=== PATIENT | female | born 1940 | race Caucasian/White ===

== ENCOUNTER 2016-11-11 12:03 | Outpatient (CLI) | payer MEDICARE, OTHER ==
[2016-05-30 10:32] VITALS: BP 98/67
== END 2016-11-11 12:04 ==
LOC: CARD 12:03
PROVIDERS: ATTEND Internal Medicine Cardiovascular Disease
DX: I47.1 Supraventricular tachycardia (principal)
CPT/HCPCS: G0463

== ENCOUNTER 2017-03-19 17:57 | Emergency (ER) | payer MEDICARE, OTHER ==
--- NOTE | 2017-03-19 18:49 | ED Physician Documentation ---
Wrist Injury - HISTORIAN Historian: patient - HPI Chief Complaint: Fall Additional Information: fell on to cement, hit side of head, giving lump, and hurt medial left wrist. NO LOC, no memory loss, no vomiting Onset: just prior to arrival Where: home Severity: mild Duration: persistent since Context: fall Location of Injury: L wrist Further Comments: no - ROS CONST: no problems GI/: denies: nausea, vomiting NEURO: headache (hurts where she has a bump) CVS/RESP: none LNMP: denies: EYES/ENT: none MS/SKIN/LYMPH: none - PAST HX Past History: Rt handed, diabetes Type 2 Allergies/Adverse Reactions: Allergies Allergy/AdvReac Type Severity Reaction Status Date / Time No Known Allergies Allergy Verified 03/19/17 18:12 Home Medications: Ambulatory Orders Medication Instructions Recorded Levothyroxine Sodium [Levothroid] 150 mcg PO DAILY 10/14/12 Lisinopril [Lisinopril] 10 mg PO BID 10/14/12 Lovastatin [Lovastatin] 5 mg PO DAILY 10/14/12 Metformin HCl [GLUCOPHAGE] 500 mg PO DAILY 10/14/12 Sitagliptin Phosphate [Januvia] 100 mg PO D 09/12/13 Metoprolol Tartrate [Lopressor] 25 mg PO BID 03/19/17 - SOCIAL HX Smoking History: non-smoker Alcohol Use: none Drug Use: none - FAMILY HX Family History: none - VITAL SIGNS Vital Signs: Vital Signs Temp Pulse Resp BP Pulse Ox 98/67 05/30/16 10:30 - REVIEWED ASSESSMENTS Nursing Assessment Reviewed: Yes Vitals Reviewed: Yes Wrist Physical Exam - Physical Exam General Appearance: no acute distress, alert, anxious Hand: tenderness Wrist: soft tissue tenderness (medial left wrist, no deformity.). No: asymmetry Neuro: sensation nml, motor nml Vascular: no vascular compromise Tendon: tendon function nml Forearm/Elbow/Arm: uninjured above wrist Skin: warm/dry, normal color Head/ENT: other (2cm hematoma Left parietal scalp) Neck/Back: nml inspection Resp/CVS: no resp. distress Abdomen: non-tender ED Results Lab/Radiology - Radiology Radiology Impressions: radiology says distal radius fracture. we'll sp[lint - Orders Orders: ED Orders Category Date Time Status WRIST 3 VIEWS OR MORE [RAD] Stat Exams 03/19/17 Ordered Discharge Clincal Impression: Radius distal fracture Qualifiers: Encounter type: initial encounter Fracture type: closed Fracture morphology: other fracture Laterality: left Qualified Code(s): S52.592A - Other fractures of lower end of left radius, initial encounter for closed fracture Referrals: Elizabeth Headley FNP [Primary Care Provider] - 2 Days Home Medications: Ambulatory Orders Levothyroxine Sodium [Levothroid] 150 mcg PO DAILY 10/14/12 Lisinopril [Lisinopril] 10 mg PO BID 10/14/12 Lovastatin [Lovastatin] 5 mg PO DAILY 10/14/12 Metformin HCl [GLUCOPHAGE] 500 mg PO DAILY 10/14/12 Sitagliptin Phosphate [Januvia] 100 mg PO D 09/12/13 Metoprolol Tartrate [Lopressor] 25 mg PO BID 03/19/17 Condition: Good Disposition: 01 HOME, SELF-CARE Decision to Admit: NO Date of Decison to Admit: 03/19/17 Decision Time: 18:49
--- NOTE | 2017-03-19 19:16 | Diagnostic Imaging Report ---
[facility] [address] [facility].[address] [address] Report Submission Date: Mar 19, 2017 6:41:18 PM CDT Patient Study Name: KYLE ANDREW Date: Mar 19, 2017 6:22:01 PM CDT Modality Type: CR Gender: F Description: UPPER EXTREMITY : 44 Institution: [facility] Physician: JOVANI HILARIO Examination: Plain film wrist History: Wrist discomfort Comparison exams: None available Findings: 3 views the wrist demonstrate diffuse osteopenia. Lucency involving the distal radius, identified on PA view. No other cortical irregularity. No dislocation. No soft tissue abnormality. Impression: Probable nondisplaced distal radial fracture. Electronically signed on Mar 19, 2017 6:41:18 PM CDT by: Farhat CASTORENA
[2017-03-19 20:01] VITALS: BP 102/60
== END 2017-03-19 18:50 | disposition home or self-care (01) ==
LOC: ED 17:57
DX: S52.592A Other fractures of lower end of left radius, initial encounter for closed fracture (principal); X58.XXXA Exposure to other specified factors, initial encounter; Y93.9 Activity, unspecified; Y99.9 Unspecified external cause status
CPT/HCPCS: 73110; 99283; L3908

== ENCOUNTER 2017-04-04 14:47 | Outpatient (CLI) | payer MEDICARE, OTHER | END 2017-04-04 14:50 | LOC: NEPHRO 14:47 | PROVIDERS: ATTEND Internal Medicine Nephrology | DX: N18.3 Chronic kidney disease, stage 3 (moderate) (principal); I10 Essential (primary) hypertension; E11.9 Type 2 diabetes mellitus without complications | CPT/HCPCS: G0463 ==

== ENCOUNTER 2017-11-10 10:49 | Outpatient (CLI) | payer MEDICARE, OTHER | END 2017-11-10 10:50 | LOC: CARD 10:49 | PROVIDERS: ATTEND Nurse Practitioner | DX: I47.1 Supraventricular tachycardia (principal); E11.9 Type 2 diabetes mellitus without complications; I10 Essential (primary) hypertension; R00.2 Palpitations | CPT/HCPCS: G0463 ==

== ENCOUNTER 2017-12-01 13:55 | Outpatient (CLI) | payer MEDICARE, OTHER | END 2017-12-01 13:56 | LOC: POD 13:55 | PROVIDERS: ATTEND Podiatrist | DX: B35.1 Tinea unguium (principal); M79.674 Pain in right toe(s); M79.675 Pain in left toe(s); E11.42 Type 2 diabetes mellitus with diabetic polyneuropathy | CPT/HCPCS: G0463 ==

== ENCOUNTER 2018-03-02 13:00 | Outpatient (CLI) | payer MEDICARE, OTHER | END 2018-03-02 13:45 | LOC: POD 13:00 | PROVIDERS: ATTEND Podiatrist | DX: B35.1 Tinea unguium (principal); M79.674 Pain in right toe(s); M79.675 Pain in left toe(s) | CPT/HCPCS: 11721; G0463 ==

== ENCOUNTER 2018-06-26 15:03 | Outpatient (CLI) | payer MEDICARE, OTHER | END 2018-06-26 15:04 | LOC: NEPHRO 15:03 | PROVIDERS: ATTEND Internal Medicine Nephrology | DX: N18.3 Chronic kidney disease, stage 3 (moderate) (principal); E11.21 Type 2 diabetes mellitus with diabetic nephropathy; I10 Essential (primary) hypertension; R80.9 Proteinuria, unspecified | CPT/HCPCS: G0463 ==

== ENCOUNTER 2018-09-18 14:54 | Outpatient (CLI) | payer MEDICARE, OTHER | END 2018-09-18 14:56 | LOC: NEPHRO 14:54 | PROVIDERS: ATTEND Internal Medicine Nephrology | DX: I12.9 Hypertensive chronic kidney disease with stage 1 through stage 4 chronic kidney disease, or unspecified chronic kidney disease (principal); N18.3 Chronic kidney disease, stage 3 (moderate); E11.9 Type 2 diabetes mellitus without complications; D63.1 Anemia in chronic kidney disease; Z79.84 Long term (current) use of oral hypoglycemic drugs | CPT/HCPCS: G0463 ==

== ENCOUNTER 2018-09-19 15:05 | Outpatient (CLI) | payer MEDICARE, OTHER ==
--- NOTE | 2018-09-21 08:10 | OP Clinic Progress Note ---
SUBJECTIVE: Gale Oneil presented today to the clinic for needing her toenails trimmed, as well as a couple of calluses that are bothering her. She is unable to trim these on her own. The patient does not admit to any other foot pain or problems. She does not admit to any fevers, chills, nausea, vomiting, shortness of breath or chest pain at this time. OBJECTIVE: VITAL SIGNS: T: 96.9 degrees Fahrenheit, heart rate 68, R: 16, BP: 131/81. She has zero out of 10 pain. VASCULAR: There are 1+ DP and PT pulses of bilateral feet. Capillary refill time is less than 3 seconds to the toes bilaterally. No edema in bilateral feet. DERMATOLOGIC: Toenails are long, thick, and discolored bilaterally. There are no open lesions but there is hyperkeratosis noted of the sub 5th metatarsal head bilaterally. There is overall mild xerosis noted as well. MUSCULOSKELETAL: There is pain on palpation noted underneath the sub 5th metatarsal head region bilaterally. There is no other pain on palpation noted, nor significant gross abnormalities noted bilaterally. NEUROLOGIC: Light touch sensation is intact to the toes of the bilateral feet and from previous exam, there was a 5.07 SWMF test positive/present in all locations of bilateral feet. ASSESSMENT: 1. Type 2 diabetes mellitus with complication, unspecified with her long-term insulin use. E11.8. 2. Dermatophytosis. B35.9. 3. Hyperkeratosis. PROCEDURE #1: Hyperkeratosis x2 were debrided with a #15 blade without incident. The patient tolerated the procedure well. PROCEDURE #2: Toenails were debrided bilaterally 1 through 5 without incident. PLAN: The patient had the toenails and calluses trimmed today and the patient will see us in 3 months at the [facility] going forward. We will trim her nails and check her feet for a diabetic foot exam again. cc: GERA Ty
== END 2018-09-19 15:25 ==
LOC: POD 15:05
PROVIDERS: ATTEND Podiatrist Foot & Ankle Surgery
DX: E11.8 Type 2 diabetes mellitus with unspecified complications (principal); B35.9 Dermatophytosis, unspecified; L84 Corns and callosities
CPT/HCPCS: 11055; 11721

== ENCOUNTER 2018-10-12 08:12 | Outpatient (CLI) | payer MEDICARE, OTHER ==
--- NOTE | 2018-10-13 03:15 | Diagnostic Imaging Report ---
JUAN MANUEL TALAVERA [facility] [address] [facility].[address] [address] Report Submission Date: Oct 12, 2018 2:19:41 PM CONTINGENTS SUPERVISOR Patient Study Name: KYLE ANDREW Date: Oct 12, 2018 8:23:42 AM CONTINGENTS SUPERVISOR Modality Type: US Gender: F Description: US RENAL : 44 Institution: [facility] Physician: JUAN MANUEL TALAVERA Renal ultrasound History: Diabetic nephropathy Transverse and longitudinal images were obtained through the kidneys and bladder. The bladder cannot be visualized. The patient emptied her bladder right before the exam. The right kidney measures 8.5 x 4.0 x 5.0 cm. The left kidney measures 8.7 x 3.6 x 3.9 cm. Both kidneys demonstrate poor corticomedullary distinction with thinning of the cortex. The kidneys are difficult to visualize. No mass is evident. There is no hydronephrosis. Impression: The bladder is not visualized. The patient emptied the bladder right before the exam. The kidneys are difficult to visualize, demonstrating poor corticomedullary distinction and cortical thinning. No hydronephrosis. Electronically signed on Oct 12, 2018 2:19:41 PM CONTINGENTS SUPERVISOR by: Amrita CASTORENA
== END 2018-10-12 08:14 ==
LOC: RAD 08:12
PROVIDERS: ATTEND Internal Medicine Nephrology
DX: E11.21 Type 2 diabetes mellitus with diabetic nephropathy (principal); I12.9 Hypertensive chronic kidney disease with stage 1 through stage 4 chronic kidney disease, or unspecified chronic kidney disease; N18.3 Chronic kidney disease, stage 3 (moderate); R80.9 Proteinuria, unspecified
CPT/HCPCS: 76770

== ENCOUNTER 2018-10-21 10:51 | Emergency (ER) | payer MEDICARE, OTHER ==
--- NOTE | 2018-10-21 10:53 | ED Physician Documentation ---
Fall - HISTORIAN Historian: patient - HPI Stated Complaint: pain after fall yesterday Chief Complaint: Fall Onset: yesterday Where: home Context: tripped, slipped Associated Symptoms:: no loss of consciousness Location of Pain/Injury: lower extremity Injury to Right Extremity: none Injury to Left Extremity: leg Further Comments: yes (she states last night slipped on the rug and she bent her left leg under her and this am she has pain in the left lower leg that she "wants checked out" . She has not had any pain meds. Denies any visable swelling. She states the pain is a 2-3 unless she presses her foot down and it increases. She is able to walk but was brought by ambulance due to fear of falling on the ice) - ROS CONST: no problems NEURO: denies: dizziness MS/SKIN/LYMPH: denies: weakness, numbness, neck pain EYES/ENT: none CVS/RESP: none - PAST HX Past History: diabetes Type 2 Immunizations: UTD Allergies/Adverse Reactions: Allergies Allergy/AdvReac Type Severity Reaction Status Date / Time No Known Allergies Allergy Verified 10/21/18 11:17 Home Medications: Ambulatory Orders Medication Instructions Recorded Levothyroxine Sodium [Levothroid] 150 mcg PO DAILY 10/14/12 Lovastatin 5 mg PO DAILY 10/14/12 Metformin HCl [GLUCOPHAGE] 500 mg PO DAILY 10/14/12 Sitagliptin Phosphate [Januvia] 100 mg PO D 09/12/13 Metoprolol Tartrate [Lopressor] 25 mg PO BID 03/19/17 - SOCIAL HX Smoking History: non-smoker Alcohol Use: none Drug Use: none - FAMILY HX Family History: none - VITAL SIGNS Vital Signs: Vital Signs Temp Pulse Resp BP Pulse Ox 102/60 03/19/17 18:50 - REVIEWED ASSESSMENTS Nursing Assessment Reviewed: Yes Vitals Reviewed: Yes Progress - Progress Progress: 1245: discussed with Kadie at [facility]. Splint or cane touch toe weight bearing. And call for ortho appt Monday with Dr Villa. I offered her pain medication she states she did not need any at this time DG ED Results Lab/Radiology - Radiology Radiology Impressions: Left knee, AP, lateral and sunrise views History: Knee pain, fall Findings: Minimally displaced proximal fibular shaft fracture is present. Knee is demineralized. There is no dislocation or abnormal bone destruction. Impression: Proximal fibular fracture. Electronically signed on Oct 21, 2018 11:45:43 AM STILL OPERATOR by: Alexis David Left tibia and fibula, AP and lateral History: Fall, injury Findings: Tibia and fibula are demineralized. Minimally displaced fractures noted at the proximal fibular shaft. There is no dislocation or abnormal bone destruction. Impression: Minimally displaced proximal fibular fracture. Electronically signed on Oct 21, 2018 11:45:00 AM STILL OPERATOR by: Alexis Martinez Physical Exam - Physical Exam General Appearance: no acute distress, alert Head: non-tender Neck: non-tender, painless ROM Eye: KRISTEL ENT: nml external inspection, no oral injury, airway nml Resp/CVS: chest non-tender, breath sounds nml, no resp. distress, heart sounds nml Abdomen: soft, normal bowel sounds, no distension Neuro: oriented x3 Skin: color nml, no rash Back: normal inspection Extremities: atraumatic, pelvis stable, hips non-tender Joint: joints nml, nml ROM (pain with foot flexion left lower leg - no obvious injury. Pulses + sensation + cap refill + ) - Rye Coma Score Eyes Open: Spontaneous Speech: Oriented Motor: Obeys Commands Discharge Clincal Impression: Fibula fracture Qualifiers: Encounter type: initial encounter Fibula location: shaft Fracture type: closed Fracture morphology: other fracture Laterality: left Qualified Code(s): S82.492A - Other fracture of shaft of left fibula, initial encounter for closed fracture Referrals: Elizabeth Headley CARNALLITE PLANT OPERATOR [Primary Care Provider] - 2 Days Comments: 1. Ibuprofen 800 mg take 1 by mouth every 12 hours for mild pain 2. Vicodin take 1 by mouth ever 12 hours as needed for more severe pain 3. Touch toe weight bearing with walker 4. Eat with pain med 5. Call ortho with [facility] with Dr Villa in AM for appt 6. Return to ER for any concerns Condition: Stable Disposition: 01 HOME, SELF-CARE Decision to Admit: NO Date of Decison to Admit: 10/21/18 Decision Time: 13:00
--- NOTE | 2018-10-21 11:50 | Diagnostic Imaging Report ---
KILEY ANDINO [facility] [address] [facility].[address] [address] Report Submission Date: Oct 21, 2018 11:45:43 AM 8TH GRADE TEACHER Patient Study Name: KYLE ANDREW Date: Oct 21, 2018 11:17:27 AM 8TH GRADE TEACHER Modality Type: DX Gender: F Description: KNEE 3 VIEWS : 44 Institution: [facility] Physician: KILEY ANDINO Left knee, AP, lateral and sunrise views History: Knee pain, fall Findings: Minimally displaced proximal fibular shaft fracture is present. Knee is demineralized. There is no dislocation or abnormal bone destruction. Impression: Proximal fibular fracture. Electronically signed on Oct 21, 2018 11:45:43 AM 8TH GRADE TEACHER by: Alexis CASTORENA
--- NOTE | 2018-10-21 11:51 | Diagnostic Imaging Report ---
KILEY ANDINO [facility] [address] [facility].[address] [address] Report Submission Date: Oct 21, 2018 11:45:00 AM PERSONAL CARE AIDE Patient Study Name: KYLE ANDREW Date: Oct 21, 2018 11:17:40 AM PERSONAL CARE AIDE Modality Type: DX Gender: F Description: TIBIA & FIBULA 2 VIEW : 44 Institution: [facility] Physician: KILEY ANDINO Left tibia and fibula, AP and lateral History: Fall, injury Findings: Tibia and fibula are demineralized. Minimally displaced fractures noted at the proximal fibular shaft. There is no dislocation or abnormal bone destruction. Impression: Minimally displaced proximal fibular fracture. Electronically signed on Oct 21, 2018 11:45:00 AM PERSONAL CARE AIDE by: Alexis CASTORENA
[2018-10-21 13:13] VITALS: BP 128/64
== END 2018-10-21 13:10 | disposition home or self-care (01) ==
LOC: ED 10:51
DX: S82.492A Other fracture of shaft of left fibula, initial encounter for closed fracture (principal); W01.0XXA Fall on same level from slipping, tripping and stumbling without subsequent striking against object, initial encounter; Y93.01 Activity, walking, marching and hiking; Y92.009 Unspecified place in unspecified non-institutional (private) residence as the place of occurrence of the external cause
CPT/HCPCS: 73562; 73590; 99283; 99284

== ENCOUNTER 2018-12-05 09:26 | Outpatient (CLI) | payer MEDICARE, OTHER ==
[2018-12-05 10:05] LABS: BASOPHILS % 0.7 (0.0-1.5); EOSINOPHILS % 4.8 % (0.0-6.8); MEAN CORPUSCULAR HEMOGLOBIN 28.4 pg (28.0-34.0); MONOCYTES % 5.3 % (0.0-11.0); NEUTROPHILS # 4.8 # k/uL (1.4-7.7)
[2018-12-05 10:20] LABS: eGFR (Non-African) 41
[2018-12-05 10:41] LABS: APPEARANCE,URINE CLEAR (CLEAR); COLOR,URINE YELLOW (YELLOW); OCCULT BLOOD,URINE TRACE-INTACT (NEGATIVE); PH URINE 5.5 (5.0 - 8.0); UROBILINOGEN URINE 0.2 Eu (0.2-1.0)
== END 2018-12-05 09:28 ==
LOC: LAB 09:26
PROVIDERS: ATTEND Internal Medicine Nephrology
DX: I12.9 Hypertensive chronic kidney disease with stage 1 through stage 4 chronic kidney disease, or unspecified chronic kidney disease (principal); N18.3 Chronic kidney disease, stage 3 (moderate); E11.40 Type 2 diabetes mellitus with diabetic neuropathy, unspecified; R80.9 Proteinuria, unspecified
CPT/HCPCS: 36415; 80053; 81002; 84100; 85025; 87086

== ENCOUNTER 2018-12-11 14:16 | Outpatient (CLI) | payer MEDICARE, OTHER | END 2018-12-11 14:18 | LOC: NEPHRO 14:16 | PROVIDERS: ATTEND Internal Medicine Nephrology | DX: I12.9 Hypertensive chronic kidney disease with stage 1 through stage 4 chronic kidney disease, or unspecified chronic kidney disease (principal); N18.3 Chronic kidney disease, stage 3 (moderate); R80.9 Proteinuria, unspecified; N17.9 Acute kidney failure, unspecified; E11.9 Type 2 diabetes mellitus without complications; D63.1 Anemia in chronic kidney disease | CPT/HCPCS: G0463 ==